=== PATIENT | male | born 1955 | race Two or more races ===

== ENCOUNTER 2018-04-13 11:17 | Outpatient (CLI) | payer OTHER | END 2018-04-13 15:27 | disposition home or self-care (01) | LOC: RAD 11:17 | DX: M54.5 Low back pain (principal) ==

== ENCOUNTER 2018-05-01 11:31 | Outpatient (CLI) | payer OTHER ==
[~2018-05-01] VITALS: Ht 170.2 cm; Wt 86.2 kg
== END 2018-05-01 17:00 | disposition home or self-care (01) ==
LOC: OFIC 805 11:31
DX: H61.23 Impacted cerumen, bilateral (principal); H92.02 Otalgia, left ear

== ENCOUNTER → 2018-05-05 | Outpatient (CLI) | payer OTHER | END | disposition home or self-care (01) | LOC: RAD 10:15 | DX: M54.2 Cervicalgia (principal); M54.5 Low back pain ==

== ENCOUNTER 2018-05-07 09:35 | Outpatient (CLI) | payer OTHER | END 2018-05-07 09:47 | disposition home or self-care (01) | LOC: SONOGRAMA 09:35 | DX: G56.22 Lesion of ulnar nerve, left upper limb (principal) ==

== ENCOUNTER 2018-05-11 13:55 | Outpatient (CLI) | payer OTHER | END 2018-05-11 14:04 | disposition home or self-care (01) | LOC: NUCLEAR 13:55 | DX: M81.0 Age-related osteoporosis without current pathological fracture (principal) ==

== ENCOUNTER 2019-01-14 10:57 | Outpatient (CLI) | payer OTHER | END 2019-01-14 11:00 | disposition home or self-care (01) | LOC: NUCLEAR 10:57 | DX: I35.0 Nonrheumatic aortic (valve) stenosis (principal); I70.213 Atherosclerosis of native arteries of extremities with intermittent claudication, bilateral legs; I73.9 Peripheral vascular disease, unspecified ==

== ENCOUNTER 2019-01-15 11:08 | Outpatient (CLI) | payer OTHER | END 2019-01-15 11:22 | disposition home or self-care (01) | LOC: NUCLEAR 11:08 | DX: I70.213 Atherosclerosis of native arteries of extremities with intermittent claudication, bilateral legs (principal); G62.9 Polyneuropathy, unspecified; I10 Essential (primary) hypertension; I35.0 Nonrheumatic aortic (valve) stenosis ==

== ENCOUNTER 2021-11-08 08:00 | Outpatient (CLI) | payer OTHER | END 2021-11-08 08:30 | disposition home or self-care (01) | LOC: PPH VACUNA 08:00 | PROVIDERS: ATTEND Emergency Medicine Pediatric Emergency Medicine | DX: Z23 Encounter for immunization (principal) ==

== ENCOUNTER 2022-07-08 08:24 | Outpatient (CLI) | payer OTHER | END 2022-07-08 08:34 | disposition home or self-care (01) | LOC: PPH VACUNA 08:24 | PROVIDERS: ATTEND Emergency Medicine Pediatric Emergency Medicine | DX: Z23 Encounter for immunization (principal) ==

== ENCOUNTER 2022-11-22 | Outpatient (CLI) | payer OTHER | END 2022-11-22 00:15 | disposition home or self-care (01) | LOC: PPH VACUNA | PROVIDERS: ATTEND Emergency Medicine Pediatric Emergency Medicine | DX: Z23 Encounter for immunization (principal) ==

== ENCOUNTER 2022-12-30 07:08 | Outpatient (CLI) | payer OTHER | END 2022-12-30 07:15 | disposition home or self-care (01) | LOC: RAD 07:08 | PROVIDERS: ATTEND Family Medicine Geriatric Medicine | DX: J32.0 Chronic maxillary sinusitis (principal); J01.00 Acute maxillary sinusitis, unspecified; J45.902 Unspecified asthma with status asthmaticus; R05.8 Other specified cough; R07.1 Chest pain on breathing; R51.9 Headache, unspecified; R10.9 Unspecified abdominal pain; R10.2 Pelvic and perineal pain; R10.84 Generalized abdominal pain; N20.0 Calculus of kidney; G44.89 Other headache syndrome; R13.0 Aphagia; R31.9 Hematuria, unspecified ==

== ENCOUNTER 2023-02-05 14:10 | Emergency (ER) | payer OTHER ==
[~2023-02-05] VITALS: Ht 170.2 cm; Wt 73.9 kg
[2023-02-05] MEDS ORDERED: TOPROL XL50 M1 (14:23)
[2023-02-05] MEDS ORDERED: SYNTHROID50 MCG (14:23)
== END 2023-02-05 17:40 | disposition home or self-care (01) ==
LOC: ER 14:10
DX: M75.51 Bursitis of right shoulder (principal)

== ENCOUNTER → 2023-02-06 | Outpatient (CLI) | payer OTHER ==
[~2023-02-06] MED LIST: SYNTHROID50 MCG; TOPROL XL50 M1
== END | disposition home or self-care (01) ==
LOC: SONOGRAMA 08:50
DX: M25.511 Pain in right shoulder (principal); M75.51 Bursitis of right shoulder

== ENCOUNTER 2023-02-07 09:27 | Outpatient (CLI) | payer OTHER | END 2023-02-07 09:35 | disposition home or self-care (01) | LOC: SONOGRAMA 09:27 | DX: M25.511 Pain in right shoulder (principal); M75.51 Bursitis of right shoulder ==

== ENCOUNTER 2023-09-07 07:05 | Outpatient (CLI) | payer OTHER | END 2023-09-07 12:18 | disposition home or self-care (01) | LOC: TOM 07:05 | PROVIDERS: ATTEND Surgery | DX: K42.1 Umbilical hernia with gangrene (principal) ==

== ENCOUNTER 2024-03-13 05:44 | Day surgery (SDC) | payer OTHER ==
[2024-03-04 15:20] LABS: URINE APPEARANCE Clear; URINE BILIRRUBIN Negative (NEGATIVE); URINE BLOOD Negative; URINE COLOR Yellow; URINE GLUCOSE Negative (NEGATIVE); URINE KETONE Negative (NEGATIVE); URINE LEUKOCYTE Negative; URINE NITRATE Negative; URINE PROTEIN Negative (NEGATIVE); URINE UROBILINOGEN 0.2 E.U./dl
[2024-03-04 15:21] LABS: HEMATOCRIT 39.9 % (39.0-48.0); HEMOGLOBIN 13.6 g/dL (13-16.00); MEAN CELL VOLUME 93.9 fL (80.0-100.00); MEAN CORPUSCULAR HEMOGLOBIN 31.9 pg (27.00-32.0); PLATELET COUNT 132 K/uL (150-450); RED BLOOD COUNT 4.25 M/uL (4.00-6.00); RED CELL DISTRIBUTION WIDTH 13.8 % (11.5-14.5)
[2024-03-04 15:24] LABS: URINE WBC 3.5 uL (0.0-23.2)
[2024-03-04 15:43] LABS: INR 0.99; PARTIAL THROMBOPLASTIN TIME 29.5 SECONDS (22.0-34.0); PROTHROMBIN TIME 10.4 SECONDS (9.0-11.5)
[2024-03-04 15:44] LABS: CALCIUM 9.2 mg/dL (8.5-10.1); CREATININE SERUM 0.91 mg/dL (0.70-1.30); GFR 82.36; POTASSIUM 3.85 mEq/L (3.5-5.1)
[2024-03-04 15:47] LABS: URINE BACTERIA 3.7 uL (0.0-1933); URINE EPITHELIAL CELLS 0.7 uL (0.0-38.8); URINE RBC 1.8 uL (0.0-20.8)
[~2024-03-13 05:44] MED LIST changes: +HORIZANT300 MG PO
[2024-03-13] MEDS ORDERED: ENOXAPARIN SODIUM 40 MG/0.4 ML SYRINGE SUBCUTANEO ONE ×2 (09:31→10:30)
[2024-03-13] MEDS ORDERED: BUPIVACAINE HCL/MPF 0.5% 30ML VIAL ONE (09:31)
[2024-03-13] MEDS ORDERED: CEFTRIAXONE SODIUM 2,000 MG VIAL ONE (09:32)
[2024-03-13] MEDS ORDERED: METRONIDAZOLE/SODIUM CHLORIDE 500 MG/100 ML PIGGYBACK IV ONE ×2 (09:32→10:30)
[2024-03-13] MEDS ORDERED: BUPIVACAINE HCL/PF 0.25% 30ML VIAL InF ONE (10:30)
[2024-03-13] MEDS ORDERED: CEFTRIAXONE SODIUM 2,000 MG VIAL IV ONE (10:30)
[2024-03-13] MEDS ORDERED: SUGAMMADEX SODIUM 200 MG/2 ML VIAL IV ONE ×2 (10:33→10:45)
[2024-03-13] MEDS ORDERED: PERCOCET 5-3251 EACH PO (11:52)
[2024-03-13] MEDS ORDERED: CELEBREX200MG PO (11:52)
[2024-03-13] MEDS ORDERED: POLY119PG PO (11:52)
[2024-03-13] MEDS ORDERED: NEURONTIN300 MG PO (11:52)
[2024-03-13] MEDS ORDERED: MORPHINE SULFATE 4 MG/ML VIAL IV ONE ×2 (12:50→13:20)
[2024-03-13] MEDS ORDERED: ONDANSETRON HCL 2 MG/ML VIAL ONE (12:54)
[2024-03-13] MEDS ORDERED: ENALAPRILAT DIHYDRATE 1.25 MG/ML VIAL IV ONE (16:02)
[2024-03-13] MEDS ORDERED: hydrALAZINE HCL 20 MG VIAL IV ONE (17:50)
[2024-03-13] MEDS ORDERED: hydrALAZINE HCL 20 MG VIAL ONE (17:54)
== END 2024-03-13 19:00 | disposition home or self-care (01) ==
LOC: CIR.AMB 05:44
PROVIDERS: ATTEND Surgery
DX: K43.6 Other and unspecified ventral hernia with obstruction, without gangrene (principal); K43.0 Incisional hernia with obstruction, without gangrene; I10 Essential (primary) hypertension; I25.10 Atherosclerotic heart disease of native coronary artery without angina pectoris; E03.9 Hypothyroidism, unspecified; I35.0 Nonrheumatic aortic (valve) stenosis
CPT/HCPCS: 49596; C1781

== ENCOUNTER 2024-03-23 15:12 | Emergency (ER) | payer OTHER ==
[~2024-03-23] VITALS: Ht 170.2 cm; Wt 72.6 kg
[~2024-03-23 15:12] MED LIST changes: +CELEBREX200MG PO; +NEURONTIN300 MG PO; +PERCOCET 5-3251 EACH PO; +POLY119PG PO
== END 2024-03-23 17:05 | disposition home or self-care (01) ==
LOC: ER 15:14
DX: H61.22 Impacted cerumen, left ear (principal); I11.9 Hypertensive heart disease without heart failure